=== PATIENT | female | born 1970 | race Hispanic/Latino ===

== ENCOUNTER 2017-11-24 06:48 | Inpatient (IN) | payer SELFPAY ==
[~2017-11-24] VITALS: Ht 152.4 cm; Wt 67.6 kg
[~2017-11-24 06:48] MED LIST: LOSA50TA37 PO
[2017-11-24] MEDS ORDERED: ONDANSETRON HCL 4 MG/2 ML VIAL ONE (07:29)
[2017-11-24] MEDS ORDERED: SODIUM CHLORIDE 0.9% 1000ML 1,000 ML IV ONE (07:30)
[2017-11-24] MEDS ORDERED: KETOROLAC TROMETHAMINE 15MG/ML ONE (07:30)
[2017-11-24 07:36] LABS: APPEARANCE,URINE Turbid (CLEAR); BASOPHILS % (AUTO) 0.8 % (0.0-5.0); BILIRUBIN,URINE Small (NEGATIVE); EOSINOPHILS % (AUTO) 0.9 % (0.0-8.0); GLUCOSE, URINE (UA) Negative (NEGATIVE); HEMATOCRIT 40.3 % (36-48); KETONES,URINE Negative (NEGATIVE); LEUKOCYTE ESTERASE ,URINE Moderate (NEGATIVE); MEAN CORPUSCULAR HEMOGLOBIN 32.4 pg (27.0-33.0); MEAN CORPUSCULAR HGB CONC 34.1 g/dL (32.0-36.0); MONOCYTES % (AUTO) 7.9 % (3.0-13.0); NEUTROPHILS % (AUTO) 65.4 % (40.0-77.0); NITRATE,URINE Positive (NEGATIVE); NUCLEATED RED BLOOD CELLS 0.1 % (0.0-0.19); OCCULT BLOOD,URINE Small (NEGATIVE); PLATELET COUNT (AUTO) 244 K/uL (130-400); PROTEIN,URINE POS 1+ (NEGATIVE); RED BLOOD CELL COUNT(AUTO) 4.24 MIL/uL (4.00-5.50); RED CELL DISTRIBUTION WIDTH 13.4 % (11.0-15.5); UROBILINOGEN,URINE 0.2 mg/dL (0.2-1.0); WHITE BLOOD COUNT (AUTO) 9.3 K/uL (4.8-10.8)
[2017-11-24 07:37] LABS: COLOR,URINE Brown (YELLOW)
[2017-11-24 07:40] LABS: HCG,QUAL RESULT NEGATIVE (NEGATIVE)
[2017-11-24 07:41] LABS: CREATININE 0.6 mg/dL (0.5-1.5); POTASSIUM 4.4 mmol/L (3.5-5.1)
[2017-11-24 07:45] LABS: AMORPHOUS SEDIMENT,UR Moderate /LPF (None Seen); BACTERIA,URINE Few /HPF (None Seen); RBC,URINE TNTC /HPF (0-1); WBC,URINE 0-1 /HPF (0-1)
[2017-11-24 07:47] LABS: ALBUMIN 3.6 g/dL (3.5-5.0); BILIRUBIN,TOTAL 0.3 mg/dL (0.2-1.0); TOTAL PROTEIN, SERUM 7.6 g/dL (6.0-8.3)
[2017-11-24] MEDS ORDERED: CEFTRIAXONE SODIUM 1 GM ONE (07:52)
[2017-11-24] MEDS ORDERED: FENTANYL CITRATE PF 50 MCG/1 ML 2ML VIAL ONE ×2 (09:32→12:07)
[2017-11-24] MEDS ORDERED: CEFTRIAXONE 1GM/D5W 50ML 50 ML IV SCH (14:15)
[2017-11-24] MEDS ORDERED: ONDANSETRON HCL 4 MG/2 ML VIAL IV PRN (14:15)
[2017-11-24] MEDS ORDERED: HYDRALAZINE HCL 20 MG/ML VIAL IV PRN (14:15)
[2017-11-24] MEDS ORDERED: ACETAMINOPHEN 325 MG TAB PO PRN (14:15)
[2017-11-24] MEDS ORDERED: LACTULOSE 20 GM/30 ML UDCUP PO PRN (14:15)
[2017-11-24] MEDS ORDERED: MORPHINE SULFATE 2 MG/ML 1ML SYG ONE (15:14)
[2017-11-24 15:40] VITALS: BP 133/81
[2017-11-24] MEDS: CEFTRIAXONE SODIUM 1 GM IVP SCH (16:00)
[2017-11-24] MEDS: LACTATED RINGERS 1000ML 1,000 ML IV SCH (16:01)
[2017-11-24 19:00] VITALS: BP 130/62
[2017-11-24] MEDS: MORPHINE SULFATE 2 MG/ML 1ML SYG IV PRN (20:23)
[2017-11-24 23:00] VITALS: BP 109/60
[2017-11-25] VITALS (11 sets, daily range): BP systolic 90–136; BP diastolic 53–75
[2017-11-25] MEDS: LACTATED RINGERS 1000ML 1,000 ML IV SCH ×2 (00:04→17:38)
[2017-11-25] MEDS: MORPHINE SULFATE 2 MG/ML 1ML SYG IV PRN (03:39)
[2017-11-25 05:21] LABS: HEMATOCRIT 34.3 % (36-48); MEAN CORPUSCULAR HEMOGLOBIN 34.2 pg (27.0-33.0); MEAN CORPUSCULAR HGB CONC 35.9 g/dL (32.0-36.0); MEAN CORPUSCULAR VOLUME 95.2 fL (79-99); NUCLEATED RED BLOOD CELLS 0.1 % (0.0-0.19); PLATELET COUNT (AUTO) 243 K/uL (130-400); RED CELL DISTRIBUTION WIDTH 13.6 % (11.0-15.5); WHITE BLOOD COUNT (AUTO) 9.2 K/uL (4.8-10.8)
[2017-11-25 05:45] LABS: CREATININE 0.6 mg/dL (0.5-1.5); MAGNESIUM 1.7 mg/dL (1.80-2.40); POTASSIUM 3.5 mmol/L (3.5-5.1)
[2017-11-25] MEDS: PANTOPRAZOLE SODIUM 40 MG TABLET.DR PO SCH (07:30)
[2017-11-25] MEDS ORDERED: IOPAMIDOL-370 100 ML VIAL IV ONE (08:56)
[2017-11-25] MEDS: TAMSULOSIN HCL 0.4 MG CAP.ER.24H PO SCH (09:00)
[2017-11-25] MEDS: ENOXAPARIN SODIUM 40 MG/0.4 ML SYRINGE SQ SCH (09:00)
[2017-11-25] MEDS: ACETAMINOPHEN-CODEINE 300/30MG TAB PO PRN ×2 (13:04→20:01)
[2017-11-25] MEDS: CEFTRIAXONE SODIUM 1 GM IVP SCH (17:41)
[2017-11-26] VITALS (13 sets, daily range): BP systolic 91–154; BP diastolic 35–84
[2017-11-26] MEDS: LACTATED RINGERS 1000ML 1,000 ML IV SCH ×3 (03:43→21:30)
[2017-11-26 04:12] LABS: INR 1.01 (0.85-1.15); PROTHROMBIN TIME 10.6 SEC (9.6-11.6)
[2017-11-26] MEDS: PANTOPRAZOLE SODIUM 40 MG TABLET.DR PO SCH (06:46)
[2017-11-26] MEDS: ENOXAPARIN SODIUM 40 MG/0.4 ML SYRINGE SQ SCH (09:00)
[2017-11-26] MEDS ORDERED: IODIXANOL 320 MG/ML 100 ML VIAL ONE (14:29)
[2017-11-26] MEDS ORDERED: LIDOCAINE HCL MPF 1% 5ML VIAL ONE (14:29)
[2017-11-26] MEDS ORDERED: FENTANYL CITRATE PF 50 MCG/1 ML 2ML VIAL ONE (14:39)
[2017-11-26] MEDS ORDERED: MIDAZOLAM HCL 1 MG/ML 2ML VIAL ONE (14:39)
[2017-11-26] MEDS: CEFTRIAXONE SODIUM 1 GM IVP SCH (16:41)
[2017-11-26] MEDS: TAMSULOSIN HCL 0.4 MG CAP.ER.24H PO SCH (16:41)
[2017-11-26] MEDS: MORPHINE SULFATE 2 MG/ML 1ML SYG IV PRN ×2 (16:42→21:30)
[2017-11-27] MEDS: ACETAMINOPHEN-CODEINE 300/30MG TAB PO PRN ×2 (03:08→13:17)
[2017-11-27 04:10] VITALS: BP 133/79
[2017-11-27 05:40] LABS: HEMATOCRIT 32.2 % (36-48); MEAN CORPUSCULAR HEMOGLOBIN 34.4 pg (27.0-33.0); MEAN CORPUSCULAR HGB CONC 36.7 g/dL (32.0-36.0); MEAN CORPUSCULAR VOLUME 93.7 fL (79-99); NUCLEATED RED BLOOD CELLS 0.1 % (0.0-0.19); PLATELET COUNT (AUTO) 238 K/uL (130-400); RED BLOOD CELL COUNT(AUTO) 3.44 MIL/uL (4.00-5.50); RED CELL DISTRIBUTION WIDTH 13.3 % (11.0-15.5); WHITE BLOOD COUNT (AUTO) 6.3 K/uL (4.8-10.8)
[2017-11-27 06:10] LABS: CREATININE 0.5 mg/dL (0.5-1.5); POTASSIUM 3.3 mmol/L (3.5-5.1)
[2017-11-27 07:50] VITALS: BP 122/65
[2017-11-27] MEDS: TAMSULOSIN HCL 0.4 MG CAP.ER.24H PO SCH (10:19)
[2017-11-27] MEDS: PANTOPRAZOLE SODIUM 40 MG TABLET.DR PO SCH (10:21)
[2017-11-27] MEDS: ENOXAPARIN SODIUM 40 MG/0.4 ML SYRINGE SQ SCH (10:21)
[2017-11-27 11:35] VITALS: BP 132/65
[2017-11-27] MEDS: LACTATED RINGERS 1000ML 1,000 ML IV SCH (13:17)
[2017-11-27] MEDS ORDERED: TYL3 PO (15:24)
[2017-11-27 16:00] VITALS: BP 139/85
[2017-11-27] MEDS: CEFTRIAXONE SODIUM 1 GM IVP SCH (17:03)
[2017-11-27] MEDS ORDERED: LOSA50TA37 PO (18:05)
== END 2017-11-27 19:05 | disposition home or self-care (01) | DRG 694 ==
LOC: EDH 06:48 → EDHIP 06:49 → 3CH 15:22
PROVIDERS: ADMIT Family Medicine; ATTEND Family Medicine
PROC: 0T9330Z Drainage of Right Kidney Pelvis with Drainage Device, Percutaneous Approach (ICD-10-PCS; principal; 2017-11-26)
DX: N13.2 Hydronephrosis with renal and ureteral calculous obstruction (principal); N39.0 Urinary tract infection, site not specified; I10 Essential (primary) hypertension; N83.201 Unspecified ovarian cyst, right side; Z82.49 Family history of ischemic heart disease and other diseases of the circulatory system; Z83.3 Family history of diabetes mellitus; Z90.49 Acquired absence of other specified parts of digestive tract
CPT/HCPCS: 10030; 36415; 50432; 74176; 74400; 76770; 80048; 80053; 81001; 81025; 83735; 85025; 85027; 85610; 87088; 99156; A4218; C1729; C1894; J0696; J1644; J1650; J1885; J2250; J2405; J3010; J3490; J7030; J7120; Q9967

== ENCOUNTER 2022-09-28 04:21 | Emergency (ER) | payer BC ==
[~2022-09-28] VITALS: Ht 152.4 cm; Wt 72.1 kg
[~2022-09-28 04:21] MED LIST changes: -LOSA50TA37 PO; +LOSA50TA64 PO; +TYL3 PO
[2022-09-28 04:55] LABS: BASOPHILS % (AUTO) 0.1 % (0.0-5.0); EOSINOPHILS % (AUTO) 0.2 % (0.0-8.0); HEMATOCRIT 36.6 % (36-48); LYMPHOCYTES % (AUTO) 14.6 % (21.0-51.0); MEAN CORPUSCULAR HEMOGLOBIN 31.8 pg (27.0-33.0); MEAN CORPUSCULAR HGB CONC 34.2 g/dL (32.0-36.0); MEAN CORPUSCULAR VOLUME 93.1 fL (79-99); MONOCYTES % (AUTO) 6.7 % (3.0-13.0); NEUTROPHILS % (AUTO) 77.9 % (40.0-77.0); PLATELET COUNT (AUTO) 271 K/uL (130-400); RED BLOOD CELL COUNT(AUTO) 3.93 MIL/uL (4.00-5.50); RED CELL DISTRIBUTION WIDTH 12.4 % (11.0-15.5); WHITE BLOOD COUNT (AUTO) 10.1 K/uL (4.8-10.8)
[2022-09-28 04:56] LABS: APPEARANCE,URINE CLEAR (CLEAR); BILIRUBIN,URINE NEGATIVE (NEGATIVE); COLOR,URINE LIGHT-YELLOW (YELLOW); GLUCOSE, URINE (UA) NEGATIVE (NEGATIVE); KETONES,URINE NEGATIVE (NEGATIVE); NITRATE,URINE NEGATIVE (NEGATIVE); OCCULT BLOOD,URINE SMALL (NEGATIVE); PH,URINE 6.5 (5.0-8.0); PROTEIN,URINE NEGATIVE (NEGATIVE); UROBILINOGEN,URINE 0.2 mg/dL (0.2-1.0)
[2022-09-28 04:59] LABS: LEUKOCYTE ESTERASE ,URINE 25 Leu/uL (NEGATIVE)
[2022-09-28 05:00] LABS: BACTERIA,URINE RARE /HPF (None Seen); SQUAMOUS EPITHELIAL CELL,UR RARE /HPF (0-2)
[2022-09-28 05:12] LABS: ALBUMIN 3.5 g/dL (3.5-5.0); CREATININE 0.4 mg/dL (0.5-1.5); POTASSIUM 3.7 mmol/L (3.5-5.1); TOTAL PROTEIN, SERUM 7.1 g/dL (6.0-8.3)
[2022-09-28] MEDS ORDERED: MAG/ALUM/SIMETH 30 ML UDCUP ONE (05:52)
[2022-09-28] MEDS ORDERED: ONDANSETRON 4MG INJ ONE (05:53)
[2022-09-28] MEDS ORDERED: LIDOCAINE HCL 2% VISCOUS 15 ML UDCUP ONE (05:53)
[2022-09-28] MEDS ORDERED: MORPHINE 2 MG SYG ONE (05:53)
[2022-09-28] MEDS ORDERED: MAG/ALUM/SIMETH 30 ML UDCUP PO ONE (06:00)
[2022-09-28] MEDS ORDERED: 0.9%NACL 1000ML 1,000 ML IV ONE (06:00)
[2022-09-28] MEDS ORDERED: LIDOCAINE HCL 2% VISCOUS 15 ML UDCUP PO ONE (06:00)
[2022-09-28] MEDS ORDERED: ONDANSETRON 4MG INJ IVP ONE (06:00)
[2022-09-28] MEDS ORDERED: MORPHINE 2 MG SYG IVP ONE (06:00)
[2022-09-28] MEDS ORDERED: IOHEXOL-350 75 ML VIAL IV ONE (06:19)
[2022-09-28] MEDS ORDERED: CEPH500B PO (09:45)
[2022-09-28] MEDS ORDERED: ONDA4TAB10 PO (09:45)
[2022-09-28] MEDS ORDERED: CEFTRIAXONE 1G VIAL IVPB ONE (10:00)
[2022-09-28 10:20] VITALS: BP 105/62
== END 2022-09-28 10:23 | disposition home or self-care (01) ==
LOC: EDH 04:21
DX: K52.9 Noninfective gastroenteritis and colitis, unspecified (principal); N39.0 Urinary tract infection, site not specified; I10 Essential (primary) hypertension; Z79.899 Other long term (current) drug therapy; Z90.49 Acquired absence of other specified parts of digestive tract
CPT/HCPCS: 99284; 74177; 96374; 96361; 96375; 80053; 83690; 85025; 81001; 36415; J7030; J0696; J2405; Q9967